=== PATIENT | male | born 1990 | race Caucasian/White ===

== ENCOUNTER 2021-07-02 11:02 | Emergency (ER) | payer SELFPAY ==
[~2021-07-02] VITALS: Ht 167.6 cm; Wt 90.7 kg
--- NOTE | 2021-07-02 11:13 | NUR ---
DR CARROLL AT THE BEDSIDE
--- NOTE | 2021-07-02 11:15 | NUR ---
ETHAN [id number] "Was wheeling wheelbarrow up ramp- Ramp broke fell about 3ft now complaining [id number] pain was given 4Zofran and 50Fentanyl". The patient rates pain 9/10. In room air and denies SOB. Respiration regular and unlabored. Will continue to monitor the patient.
[2021-07-02] MEDS ORDERED: HYDROMORPHONE 1 MG/1 ML DISP.SYRIN ONE (11:26)
[2021-07-02] MEDS ORDERED: ONDANSETRON HCL/PF 4 MG/2 ML VIAL ONE (11:26)
[2021-07-02] MEDS ORDERED: ONDANSETRON HCL/PF 4 MG/2 ML VIAL IV ONE (11:30)
[2021-07-02] MEDS ORDERED: HYDROMORPHONE 1 MG/1 ML DISP.SYRIN IV ONE (11:30)
--- NOTE | 2021-07-02 11:32 | NUR ---
THE PATIENT IS ENDORSED TO NURSE POLK FOR MAY.
[2021-07-02] MEDS ORDERED: METH-647 PO (12:52)
--- NOTE | 2021-07-02 13:03 | NUR ---
Patient discharged to home in stable condition. Written and verbal after care instructions given. Patient verbalizes understanding of instruction.
--- NOTE | 2021-07-02 13:03 | NUR ---
IV removed. Catheter intact and site benign. Pressure and 4x4 applied to site. No bleeding noted.
[2021-07-02 13:04] VITALS: BP 112/72
== END 2021-07-02 13:04 | disposition home or self-care (01) ==
LOC: ER 11:26 → EDSEX 11:26 → ER 13:04
DX: S30.0XXA Contusion of lower back and pelvis, initial encounter (principal); W18.39XA Other fall on same level, initial encounter; Y93.89 Activity, other specified; Y92.89 Other specified places as the place of occurrence of the external cause; Y99.8 Other external cause status
CPT/HCPCS: 72131; 96374; 96375; 99284; J1170; J2405